=== PATIENT | female | born 1970 | race Caucasian/White ===

== ENCOUNTER 2020-08-18 12:36 | Outpatient (CLI) | payer BC ==
[2020-08-18] MEDS ORDERED: Iopamidol 370 76% 100 ML VIAL ONE (13:04)
== END 2020-08-18 12:37 | disposition home or self-care (01) ==
LOC: CT 12:36
PROVIDERS: ATTEND Family Medicine
DX: R10.31 Right lower quadrant pain (principal); K57.32 Diverticulitis of large intestine without perforation or abscess without bleeding
CPT/HCPCS: 74177; Q9967